=== PATIENT | male | born 1940 | race Caucasian/White ===

== ENCOUNTER → 2018-07-30 | Outpatient (REF) | payer MEDICARE ==
[~2018-07-30] MED LIST: ADLT ASA LOW81 MG PO; AGGRENOX 200/251 CAP PO; AMLODIPINE BESYL5 MG PO; ANTIVERT PO; APAP PO; APAP/TRAMADL1 TAB PO; ASPIRIN EC81 MG PO; CARISOPRODOL350 MG PO; CYANOCOBALAM1000 MC1 IM; CYANOCOBALAM1000 MCG IJ; CYANOCOBALAM1000 MCG IM; ENALAPRIL MALEA20 MG PO; ENALAPRIL10 MG PO; FLOMAX0.4 M1 PO; LANTUS SOLOSTAR; MEDDOSEPAK PO; METFORMIN1000 MG PO; METO50TA52 PO; METOPROLOL SUC200 MG PO; MIRAPEX1.5 MG OR; MULTIVITAMI1 PO; NITROGLYCER0.4 MG SL; NITROSTAT0.4 MG SL; NORVASC10 M1 PO; NOVOFINE32 GX6MM XX; OMEPRAZOLE20 MG PO; PLAVIX75 MG PO; PRAVASTATIN40 MG PO; PRILOSEC40 MG PO; REQUIP0.5 MG PO; TOPROL XL100 MG PO; TRAMADOL HCL50 MG PO; VICTOZA18 MG/3 ML SC; ZOFRAN ODT4 MG PO; [UNRECOGNIZED DRUG - OTHER] PO
== END | disposition home or self-care (01) ==
LOC: STRESS 08:12 → NUCMED 08:15
PROVIDERS: ATTEND Internal Medicine
DX: I20.9 Angina pectoris, unspecified (principal); Z98.61 Coronary angioplasty status
CPT/HCPCS: A9502; J2785

== ENCOUNTER → 2018-08-04 | Outpatient (REF) | payer MEDICARE ==
[2018-08-04 10:44] LABS: ALBUMIN 3.8 g/dL (3.2-5.0); ALKALINE PHOSPHATASE 85 u/l (38-126); ANION GAP 13 (6-22 (CALC)); BILIRUBIN, TOTAL 1.5 mg/dL (0.0-1.4); BUN 23 mg/dL (8-23); BUN/CREATININE RATIO 23 (12-20 (CALC)); CARBON DIOXIDE 26 mmol/l (22-30); CHLORIDE 99 mmol/l (95-108); GFR > 60 ML/MIN (>=60 (CALC)); GFR FOR AFR.AMER. > 60 ML/MIN (>=60 (CALC)); POTASSIUM 4.5 mmol/l (3.5-5.1); SGOT/AST 24 u/l (19-48); SODIUM 135 mmol/l (137-146)
[2018-08-04 10:58] LABS: ACT PARTIAL THROMBO TIME 28.7 SECONDS (20.0-32.5); INTERNATIONAL NORMALIZED RATIO 1.1 RATIO (0.7-1.3); PROTHROMBIN TIME 11.2 SECONDS (9.0-12.5)
[2018-08-04 11:04] LABS: HEMATOCRIT 38.4 % (39.0-50.0); HEMOGLOBIN 12.7 g/dl (14.0-18.0); MEAN CORPUSCULAR HGB 32.1 pG CALC (26.0-32.0); MEAN CORPUSCULAR HGB CONC 33.1 g/L CALC (32.0-36.0); NEUT# 2.17 thou/uL (1.82-7.42); RED BLOOD COUNT 3.96 mill/uL (4.70-6.10)
== END | disposition home or self-care (01) ==
LOC: LAB 09:48
PROVIDERS: ATTEND Internal Medicine
DX: I48.2 Chronic atrial fibrillation (principal); I20.8 Other forms of angina pectoris

== ENCOUNTER 2019-09-07 07:52 | Observation (INO) | payer MEDICARE ==
[~2019-09-07] VITALS: Ht 177.8 cm; Wt 103.6 kg
[~2019-09-07 07:52] MED LIST changes: +LANTUS SOL100 UNIT/M SC; -LANTUS SOLOSTAR
--- NOTE | 2019-09-07 07:55 | NUR ---
PT REFUSED WHEELCHAIR AND AMBUALTED TO ROOM WITH A STEADY GAIT.
[2019-09-07 08:31] LABS: HEMATOCRIT 36.9 % (39.0-50.0); HEMOGLOBIN 12.5 g/dl (14.0-18.0); IMMATURE GRANULOCYTES 0.2 % (0.0-5.0); MEAN CELL VOLUME 93.7 fL CALC (80.0-100.0); MEAN CORPUSCULAR HGB 31.7 pG CALC (26.0-32.0); MEAN CORPUSCULAR HGB CONC 33.9 g/dL CAL (32.0-36.0); NEUT# 3.25 thou/uL (1.82-7.42); RED BLOOD COUNT 3.94 mill/uL (4.70-6.10)
--- NOTE | 2019-09-07 08:55 | NUR ---
PT SKIN PWD, NO DISTRESS, RESP EVEN AND UNLABORED, PT DENIES FEELING OF FULLNESS IN THROAT AT THIS TIME. DENIES CP
[2019-09-07 08:58] LABS: ALBUMIN 4.1 g/dL (3.2-5.0); ALKALINE PHOSPHATASE 70 u/l (38-126); ANION GAP 12 (6-22 (CALC)); BILIRUBIN, TOTAL 1.8 mg/dL (0.0-1.4); BUN 20 mg/dL (8-23); BUN/CREATININE RATIO 25 (12-20 (CALC)); CARBON DIOXIDE 29 mmol/l (22-30); CHLORIDE 99 mmol/l (95-108); CREATININE 0.8 mg/dL (0.7-1.3); GFR > 60 ML/MIN (>=60 (CALC)); GFR FOR AFR.AMER. > 60 ML/MIN (>=60 (CALC)); LIPASE 81 u/l (23-300); MAGNESIUM 1.8 mg/dL (1.6-2.3); POTASSIUM 3.9 mmol/l (3.5-5.1); SGOT/AST 29 u/l (19-48); SODIUM 136 mmol/l (137-146); TOTAL PROTEIN 6.8 g/dL (6.3-8.2)
--- NOTE | 2019-09-07 09:30 | NUR ---
PT RESTING IN NO DISTRESS, STATES "THE FEELING IN MY THROAT IS GONE. PT GAVE QS LIGHT YELLOW URINE. TAKEN FOR UA. PT DENIES NEEDS AT THIS TIME. UPDATED ON WAIT TIME.
[2019-09-07 09:51] LABS: URINE BILIRUBIN - DIPSTICK NEGATIVE (NEGATIVE); URINE BLOOD DIPSTICK NEGATIVE (NEGATIVE); URINE COLOR YELLOW; URINE GLUCOSE - DIPSTICK NEGATIVE (NEGATIVE); URINE KETONE NEGATIVE (NEGATIVE); URINE LEUK ESTERASE NEGATIVE (NEGATIVE); URINE NITRITE - DIPSTICK NEGATIVE (Negative); URINE PH 6.5 (4.5-8.0); URINE PROTEIN - DIPSTICK NEGATIVE (NEG-TRACE); URINE UROBILINOGEN - DIPSTICK 0.2 E.U./dL (0.2)
[2019-09-07 09:54] LABS: TSH, 3RD GENERATION 2.07 uIU/mL (0.47 - 4.68)
--- NOTE | 2019-09-07 09:55 | NUR ---
EDP at bedside to discuss clinical findings with pt
--- NOTE | 2019-09-07 10:05 | NUR ---
Received call from DMITRI Madden re: Patient admission for chest pain - after review of criteria, writer editor advised MD via [place], observational status
[2019-09-07] MEDS ORDERED: HYDROCHLOROT25 MG PO (10:09)
[2019-09-07] MEDS ORDERED: REPAGLINIDE0.5 MG PO (10:09)
[2019-09-07] MEDS ORDERED: AMLODIPINE BES2.5 MG PO (10:10)
[2019-09-07] MEDS ORDERED: METOPROLOL SUCC50 MG PO (10:10)
[2019-09-07] MEDS ORDERED: ENALAPRIL20 MG PO (10:11)
[2019-09-07] MEDS ORDERED: CRESTOR40 MG PO (10:12)
[2019-09-07] MEDS ORDERED: ROPINIROLE HCL0.5 MG PO (10:13)
[2019-09-07] MEDS ORDERED: BAYER ASPIRIN E81 MG PO (10:14)
[2019-09-07] MEDS ORDERED: TRAMADOL HCL50 MG PO (10:15)
--- NOTE | 2019-09-07 10:34 | NUR ---
CALLED REPPORT TO KAPIL PEARSON
--- NOTE | 2019-09-07 10:40 | NUR ---
PT TRANSPORTED TO ME VIA ON TELEMETRY IN NO DISTRESS
--- NOTE | 2019-09-07 10:45 | NUR ---
PT TRANSPORTED TO THE UNIT VIA WC WITH STAFF AND TELE MONITOR IN PLACE. IV SITE IS FREE FROM REDNESS OR EDEMA
--- NOTE | 2019-09-07 10:50 | NUR ---
TELE STRIP WAS SENT DUE TO PT HAVING 8BEAT RN OF RENALDO. PT WAS COMING OFF THE ELEVATOR BEING BROUGHT UP STAIRS FROM ER. SHOWED ALEX MOSQUEDA WHILE IN THE ROOM WITH THE PT.
--- NOTE | 2019-09-07 11:10 | NUR ---
ASSESSMENT IS COMPLETED: IV SITE IS FREE FROM REDNESS OR EDEMA. HR IS RE,GPULSES ARE STRONG X4, ABD IS SOFT WITH ACTIVE BS. BREATH SOUNDS ARE CLEAR BILATERALLY, TELE MONITOR IN PLACE. CONTINUE TO OSBERVE AND MONITOR.
--- NOTE | 2019-09-07 11:15 | NUR ---
ALEX MOSQUEDA ALREADY SPOKE WITH DR KIRKLAND RE: PT.
[2019-09-07 11:48] VITALS: BP 164/73
--- NOTE | 2019-09-07 14:42 | NUR ---
DAUGHTER GABE. INFORMED OF FATHER IS DOING WELL.
--- NOTE | 2019-09-07 16:00 | NUR ---
PT IS RELAXING IN BED WITH NO DISTRESS NOTED. IV SITE IS FREE FROM REDNESS OR EDEMA. TELE MONITOR IN PLACE. DR KIRKLAND IN TO VISIT WITH PT.
[2019-09-07 16:01] VITALS: BP 136/80
--- NOTE | 2019-09-07 16:22 | NUR ---
RECIEVED REPORT FROM RAFFY DICK. INTRODUCED SELF TO PT. PT DENIES ANY PAIN OR DISCOMFORT AT THIS TIME. IV APPEARS TO BE HEALTHY. ENCOURAGED PT TO CALL IF NEEDING ANYTHING. ALL SAFTEY PERCAUTIONS IN PLACE. WILL CONTINUE TO MONITOR.
[2019-09-07 18:34] VITALS: BP 140/74
--- NOTE | 2019-09-07 19:30 | NUR ---
PATIENT AWAKE ALERT AND ORIENTEDX3. UP IN ROOM WITH STEADY GAIT. PATIENT DENIES ANY CHEST PAIN, SOB OR NAUSEA AT THIS TIME. PATIENT WITH TELE MONITOR IN PLACE. PATIENT STATES THAT HE HAD BM TODAY AND DENIES ANY DIFFICULTY WITH URINATION. LUNGS ARE DIMINISHED BUT CLEAR. SLIGHT BLE SWELLING-ENCOURAGED TO ELEVATE WHEN IN BED. SAFETY PRECAUTIONS REINFORCED. CALL LIGHT IN REACH. WILL CONT TO MONITOR.
--- NOTE | 2019-09-07 21:22 | NUR ---
SITTING UP WATCHING [id number] WAS 235-MEDICATED WITH LEVEMIR 20UNITS SCHEDULED AND WITH NOVALOG 2UNITS PER SS COVERAGE. PROVIDED WITH HS SNACK OF CEREAL BAR. HOME C-PAP AT BEDSIDE AND READY FOR USE WHEN READY FOR BED. CALL LIGHT IN REACH. WILL CONT TO MONITOR.
[2019-09-07 23:30] VITALS: BP 101/47
--- NOTE | 2019-09-08 00:08 | NUR ---
PATIENT RESTING ON LEFT SIDE WITH CPAP IN PLACE. APPEARS SLEEPING WITH EYES CLOSED. RESPS ARE EVEN AND UNLABORED. TELE MONITOR IN PLACE. CALL LIGHT IN REACH, WILL CONT TO MONITOR.
[2019-09-08 03:35] VITALS: BP 116/62
--- NOTE | 2019-09-08 04:20 | NUR ---
RESTING IN BED WITH C-PAP IN PLACE. RESPS ARE EVEN AND UNLABORED. TELE MONITOR IN PLACE. SAFETY PRECAUTIONS REINFORCED. CALL LIGHT IN REACH. WILL CONT TO MONITOR.
[2019-09-08 05:11] LABS: HEMATOCRIT 33.9 % (39.0-50.0); HEMOGLOBIN 11.6 g/dl (14.0-18.0); MEAN CELL VOLUME 93.6 fL CALC (80.0-100.0); MEAN CORPUSCULAR HGB CONC 34.2 g/dL CAL (32.0-36.0); NEUT# 2.18 thou/uL (1.82-7.42); RED BLOOD COUNT 3.62 mill/uL (4.70-6.10); RED CELL DISTRI WIDTH 12.9 % (11.5-15.5)
[2019-09-08 05:25] LABS: ANION GAP 7 (6-22 (CALC)); BUN 23 mg/dL (8-23); BUN/CREATININE RATIO 22 (12-20 (CALC)); CARBON DIOXIDE 30 mmol/l (22-30); CHLORIDE 101 mmol/l (95-108); GFR > 60 ML/MIN (>=60 (CALC)); GFR FOR AFR.AMER. > 60 ML/MIN (>=60 (CALC)); MAGNESIUM 1.9 mg/dL (1.6-2.3); POTASSIUM 3.9 mmol/l (3.5-5.1); SODIUM 134 mmol/l (137-146)
[2019-09-08 09:00] VITALS: BP 148/70
--- NOTE | 2019-09-08 09:00 | NUR ---
ASSESSMENT IS COMPLTED: IV SITE IS FREE FROM REDNESS OR EDEMA. HR IS REG, PULSES ARE STRONG X4, ABD IS SOFT WITH ACTIVE BS. BREATH SOUNDS ARE CLEAR,BILATERALLY. TELE MONITOR IN PLACE. CONTINEU TO OSBERVE AND MONITOR.
[2019-09-08] MEDS ORDERED: ISORDIL10 MG PO (09:27)
[2019-09-08] MEDS ORDERED: DIOVAN160 MG PO (09:32)
--- NOTE | 2019-09-08 11:00 | NUR ---
SPOKE WITH DR KIRKLAND STAFF AND OBTAINED AN APPOINTMENT FOR THE HOLTER MONITOR WILL BE PLACED TOMORROW IN THE OFFICE.
[2019-09-08 11:16] VITALS: BP 126/58
--- NOTE | 2019-09-08 12:24 | NUR ---
IV SITE DISCONTINUED CATHETER INTACT NO REDNESS OR EDEMA. DISCHARGE INSTRUCTIONS GIVEN AND VERBALIZED UNDERSTANDING. WILL BE HERE ABOUT 1 PM. CONTINEU TO OBSERVE AND MONITOR.
--- NOTE | 2019-09-08 13:00 | NUR ---
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 ALL BELONGINGS SENT /. WITH DISCHARGE PAPERS. Discharge instructions given. Patient verbalizes understanding of same. Discharged in stable condition via Wheelchair to Home with family. All belongings sent with pt.
== END 2019-09-08 12:44 | disposition home or self-care (01) ==
LOC: ED 07:52 → ED-I 09:51 → ED 10:16 → MS2 10:17 → ED-I 10:17 → MS2 10:28
PROVIDERS: Family Medicine; ADMIT Internal Medicine; ATTEND Internal Medicine
DX: I47.2 Ventricular tachycardia (principal); I49.3 Ventricular premature depolarization; E11.9 Type 2 diabetes mellitus without complications; I25.10 Atherosclerotic heart disease of native coronary artery without angina pectoris; I11.9 Hypertensive heart disease without heart failure; G47.33 Obstructive sleep apnea (adult) (pediatric); G89.4 Chronic pain syndrome; I25.2 Old myocardial infarction; Z95.1 Presence of aortocoronary bypass graft; Z95.5 Presence of coronary angioplasty implant and graft; Z79.4 Long term (current) use of insulin; Z86.73 Personal history of transient ischemic attack (TIA), and cerebral infarction without residual deficits; Z87.891 Personal history of nicotine dependence
CPT/HCPCS: G0378

== ENCOUNTER 2020-09-10 11:12 | Inpatient (IN) | payer MEDICARE ==
[~2020-09-10] VITALS: Ht 177.8 cm; Wt 97.0 kg
[~2020-09-10 11:12] MED LIST changes: +AMLODIPINE BES2.5 MG PO; +BAYER ASPIRIN E81 MG PO; +CRESTOR40 MG PO; +DIOVAN160 MG PO; +ENALAPRIL20 MG PO; +HYDROCHLOROT25 MG PO; +ISORDIL10 MG PO; +METOPROLOL SUCC50 MG PO; +REPAGLINIDE0.5 MG PO; +ROPINIROLE HCL0.5 MG PO
--- NOTE | 2020-09-10 11:16 | NUR ---
PT TO ROOM VIA W/C
[2020-09-10] MEDS ORDERED: LANTUS100 UNIT/M SC (11:31)
[2020-09-10] MEDS ORDERED: TRAMADOL HCL50 MG PO (11:33)
[2020-09-10] MEDS ORDERED: DIOVAN80 MG PO (11:34)
[2020-09-10] MEDS ORDERED: ISOSORB DIN10 MG PO (11:34)
[2020-09-10] MEDS ORDERED: XARELTO10 MG PO (11:35)
[2020-09-10] MEDS ORDERED: LASIX20 MG PO (11:35)
[2020-09-10] MEDS ORDERED: ALBUTEROL SUL0.083 % IN (11:37)
[2020-09-10 12:04] LABS: HEMATOCRIT 36.6 % (39.0-50.0); HEMOGLOBIN 11.7 g/dl (14.0-18.0); IMMATURE GRANULOCYTES 0.2 % (0.0-5.0); MEAN CELL VOLUME 94.8 fL CALC (80.0-100.0); MEAN CORPUSCULAR HGB 30.3 pG CALC (26.0-32.0); NEUT# 2.54 thou/uL (1.82-7.42); RED BLOOD COUNT 3.86 mill/uL (4.70-6.10); RED CELL DISTRI WIDTH 14.8 % (11.5-15.5)
[2020-09-10 12:14] LABS: ALBUMIN 4.1 g/dL (3.2-5.0); ALKALINE PHOSPHATASE 92 u/l (38-126); ANION GAP 8 (6-22 (CALC)); BILIRUBIN, TOTAL 1.5 mg/dL (0.0-1.4); BUN 19 mg/dL (8-23); BUN/CREATININE RATIO 22 (12-20 (CALC)); CARBON DIOXIDE 31 mmol/l (22-30); CHLORIDE 100 mmol/l (95-108); CREATININE 0.9 mg/dL (0.7-1.3); GFR > 60 ML/MIN (>=60 (CALC)); GFR FOR AFR.AMER. > 60 ML/MIN (>=60 (CALC)); POTASSIUM 3.9 mmol/l (3.5-5.1); SGOT/AST 33 u/l (19-48); SODIUM 135 mmol/l (137-146)
[2020-09-10 12:17] LABS: INTERNATIONAL NORMALIZED RATIO 1.5 RATIO (0.7-1.3); PROTHROMBIN TIME 15.3 SECONDS (9.0-12.5)
[2020-09-10 12:21] LABS: URINE BILIRUBIN - DIPSTICK NEGATIVE (NEGATIVE); URINE BLOOD DIPSTICK NEGATIVE (NEGATIVE); URINE COLOR YELLOW; URINE GLUCOSE - DIPSTICK NEGATIVE (NEGATIVE); URINE KETONE NEGATIVE (NEGATIVE); URINE LEUK ESTERASE NEGATIVE (NEGATIVE); URINE PROTEIN - DIPSTICK NEGATIVE (NEG-TRACE)
[2020-09-10 12:22] LABS: URINE NITRITE - DIPSTICK NEGATIVE (Negative)
--- NOTE | 2020-09-10 12:30 | NUR ---
PT RESTING ON STRETCHER, ASKED ABOUT PLAN OF CARE. CALL LIGHT WITHIN REACH
--- NOTE | 2020-09-10 13:30 | NUR ---
PT DISCONNECTED FOR A TRIP TO BR. LASIX GIVEN AND URINAL PLACED AT BEDSIDE. PT REFUSED TO USE URINAL, HE STATES THAT HE WILL WALK TO BR. HE IS EDU ON DIZZINESS AND SIDE EFFECTS OF LASIX AND HE VERBALIZED UNDERSTANDING STATING THAT HE WILL CONTINUE TO GET UP TO RESTROOM
--- NOTE | 2020-09-10 14:32 | NUR ---
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 WAIT TIME DISCUSSED.
--- NOTE | 2020-09-10 15:30 | NUR ---
PORT TELE PLACED ON PT AND HE ASKED ABOUT PLAN OF CARE AND WAIT TIME. ALL SUBJECTS DISCUSSED
--- NOTE | 2020-09-10 16:18 | NUR ---
PT TRANPORTED TO [facility] SURG STABLE AND IN NO DISTRESS VIA W/C CARE ASSUMED TO [place] Admission Note Report Given to: [place] Transported by: X Wheelchair Stretcher Transported with: X Nurse Transporter X Patent IV O2 X Mechanical Shop Laborer Location: ICU X MS2
--- NOTE | 2020-09-10 16:18 | NUR ---
GAVE REPORT TO SARAH
[2020-09-10 16:27] VITALS: BP 150/72
--- NOTE | 2020-09-10 17:28 | NUR ---
PT ARRIVED ON FLOOR @ 1620. AXOX3, DENIES PAIN. NOTED NO SOB NO 02. INTO BED WITH ASST. ORIENTED ON THE USE OF THE TELEPHONE THE CALL SYSTEM, BED AND THE TV. REPOSITIOEND FOR COMFORT, SIDE RAILS UP CALL LIGHT IN REACH, BED LOCKED IN LOW POSITION, ALL SAFTY MEASURES IN PLACE. PT CALLED HOME FOR A FAMILY MEMBER TO BRING HIS C-PAP TO THE HOSPITAL FOR USE FOR TONIGHT.
--- NOTE | 2020-09-10 17:32 | NUR ---
OUT OF THE BED TO THE BATHROOM GAIT STEADY NO RESP ISSUES NOTED AT THIS TIME.
--- NOTE | 2020-09-10 18:02 | NUR ---
PT,S BROUGHT C-PAP AT THE BEDSIDE.
[2020-09-10 19:11] VITALS: BP 150/67
--- NOTE | 2020-09-10 19:52 | NUR ---
PATIENT RESTING IN BED AT THIS TIME-AWAKE ALERT AND ORIENTEDX3. PATIENT STATES THAT HE IS FEELING TIRED BUT OTHERWISE OK. O2 SAT IS 96 ON ROOM AIR. C-PAP AT BEDSIDE FOR USE TONIGHT. SALINE LOCK TO LAC INTACT AND HEALTHY AT THIS TIME. TELE MONITOR IN PLACE. SAFETY PRECAUTIONS REINFORCED. CALL LIGHT IN REACH. WILL CONT TO MONITOR.
--- NOTE | 2020-09-10 21:46 | NUR ---
PATIENT RESTING IN BED AT THIS TIME POSITONED ON RIGHT SIDE WITH C-PAP IN PLACE. EYES ARE CLOSED. RESPS ARE EVEN AND UNLABORED AT THIS TIME. TELE MONITOR IN PLACE. CALL LIGHT IN REACH. WILL CONT TO MONITOR.
--- NOTE | 2020-09-10 23:35 | NUR ---
PATIENT RESTING IN BED AT THIS TIME WITH C-PAP IN PLACE. PATIENT REFUSED ULTRAM AT THIS TIME. TELE MONITOR IN PLACE. SALINE LOCK TO LAC INTACT. VS TAKEN AND RECORDED. CALL LIGHT IN REACH. WILL CONT TO MONITOR.
[2020-09-11 00:03] VITALS: BP 158/75
[2020-09-11 04:00] VITALS: BP 142/86
--- NOTE | 2020-09-11 04:13 | NUR ---
PATIENT POSITIONED ON HIS RIGHT6 SIDE WITH C-PAP IN PLACE AND EYES CLOSED. RESPS ARE EVEN AND UNLABORED. TELE MONITOR IN PLACE. SALINE LOCK TO0 LAC INTACT. CALL LIGHT IN REACH. WILL CONT TO MONITOR.
[2020-09-11 04:44] LABS: HEMOGLOBIN 11.1 g/dl (14.0-18.0); IMMATURE GRANULOCYTES 0.3 % (0.0-5.0); MEAN CELL VOLUME 95.2 fL CALC (80.0-100.0); MEAN CORPUSCULAR HGB 29.4 pG CALC (26.0-32.0); MEAN CORPUSCULAR HGB CONC 30.8 g/dL CAL (32.0-36.0); NEUT# 1.63 thou/uL (1.82-7.42); RED BLOOD COUNT 3.78 mill/uL (4.70-6.10); RED CELL DISTRI WIDTH 14.8 % (11.5-15.5)
[2020-09-11 05:03] LABS: ALBUMIN 3.4 g/dL (3.2-5.0); ALKALINE PHOSPHATASE 91 u/l (38-126); ANION GAP 10 (6-22 (CALC)); BILIRUBIN, TOTAL 1.4 mg/dL (0.0-1.4); BUN 20 mg/dL (8-23); BUN/CREATININE RATIO 24 (12-20 (CALC)); CARBON DIOXIDE 31 mmol/l (22-30); CHLORIDE 98 mmol/l (95-108); CREATININE 0.8 mg/dL (0.7-1.3); GFR > 60 ML/MIN (>=60 (CALC)); GFR FOR AFR.AMER. > 60 ML/MIN (>=60 (CALC)); SGOT/AST 33 u/l (19-48); SODIUM 135 mmol/l (137-146)
--- NOTE | 2020-09-11 08:00 | NUR ---
PT RESTING IN THE BED AXOX3, ON RA AT THIS TIME. NO RESP DISTRESS NOTED. PT VOIDING CLEAR YELLOW URINE, C/O PAIN IN THE LOWER BACK, MED PER ORDER. REPOSITIONED FOR COMOFRT, SIDE RAILS UP CALL LIGHT IN REACH BED LOCKED IN LOW POSITION, WILL CONTINUE TO MONIOTR THE PATIENT. ALL SAFTY MEASURES IN PLACE.
--- NOTE | 2020-09-11 10:00 | NUR ---
PT RESTING COMFORTABLE NO DISTRESS NOTED AT THIS TIME. WILL CONTINUE TO MONIOTR THE PATIENT.
--- NOTE | 2020-09-11 11:07 | NUR ---
REQUEST MADE TO PT FOR HOME MED VICTOZA.
[2020-09-11 11:27] VITALS: BP 156/79
--- NOTE | 2020-09-11 12:17 | NUR ---
TELE STRIP GIVEN TO PROVIDER TO EVALUATE.
--- NOTE | 2020-09-11 13:24 | NUR ---
AT THE BEDSIDE. HOME MED SENT TO PHARMACY WITH DOSE AND INSTRUCTIONS.
[2020-09-11 14:58] VITALS: BP 145/78
--- NOTE | 2020-09-11 16:31 | NUR ---
PT RESTING COMFORTABLE IN THE BED, NO DISTRESS NOTED AT THIS TIME. WILL CONTINUE TO MONITOR THE PATIENT.
[2020-09-11 19:30] VITALS: BP 105/60
[2020-09-11 23:50] VITALS: BP 128/74
--- NOTE | 2020-09-12 02:10 | NUR ---
PATIENT CURRENTLY RESTING WITH EYES CLOSED. RESPIRATINS EASY. ON TELEMETRY, PACED AT 70. SCHEDULED ULTRAM GIVEN FOR PAIN WITH POSITIVE EFFECT. BED IN LOW POSITION. CALL LIGHT WITHIN REACH.
[2020-09-12 04:05] VITALS: BP 139/77
[2020-09-12 05:23] LABS: HEMATOCRIT 35.6 % (39.0-50.0); HEMOGLOBIN 11.3 g/dl (14.0-18.0); IMMATURE GRANULOCYTES 0.3 % (0.0-5.0); MEAN CELL VOLUME 93.9 fL CALC (80.0-100.0); MEAN CORPUSCULAR HGB 29.8 pG CALC (26.0-32.0); MEAN CORPUSCULAR HGB CONC 31.7 g/dL CAL (32.0-36.0); NEUT# 1.89 thou/uL (1.82-7.42); RED BLOOD COUNT 3.79 mill/uL (4.70-6.10); RED CELL DISTRI WIDTH 14.5 % (11.5-15.5)
[2020-09-12 05:35] LABS: ANION GAP 7 (6-22 (CALC)); BUN 21 mg/dL (8-23); BUN/CREATININE RATIO 24 (12-20 (CALC)); CARBON DIOXIDE 35 mmol/l (22-30); CHLORIDE 96 mmol/l (95-108); CREATININE 0.8 mg/dL (0.7-1.3); GFR > 60 ML/MIN (>=60 (CALC)); GFR FOR AFR.AMER. > 60 ML/MIN (>=60 (CALC)); POTASSIUM 3.8 mmol/l (3.5-5.1); SODIUM 134 mmol/l (137-146)
--- NOTE | 2020-09-12 06:52 | NUR ---
PATIENT ACCUCHECK IS 75, NURSE NOTIFIED.
[2020-09-12 07:40] VITALS: BP 138/80
--- NOTE | 2020-09-12 07:40 | NUR ---
REPORT RECEIVED; PT SITTING UP ON EDGE OF BED EATING BREAKFAST; ALERT AND OREINTED X 3. CURRENTLY DENIES ANY PAIN; REPORTS THAT PAIN MEDICATION HAS BEEN EFFECTIVE. RESPIRATIONS EVEN AND UNLABORED ON ROOM AIR; REPORTS EXERTIONAL SOB; LUNGS ARE CLEAR. BOUNDING RADIAL PULSES; PITTING EDEMA TO BLE; 3+ TO LLE AND 4+ TO RLE WHEN DEPENDENT. PACED ON TELEMETRY. 20G IV TO LAC APPEARS HEATLHY AND FLUSHES. POC REVIEWED; PT ENCOURAGED TO VERBALIZE CONCERNS; STATES UNDERSTANDING. SAFETY MEASURES IN PLACE. CALL LIGHT WITHIN REACH.
--- NOTE | 2020-09-12 09:13 | NUR ---
DR. ZHANG AND RYLIE GONZALEZ AT BEDSIDE.
--- NOTE | 2020-09-12 09:37 | NUR ---
MIRALAX AND MILK OF MAGNESIA GIVEN WITH AM MEDS.
--- NOTE | 2020-09-12 10:00 | NUR ---
OFF UNIT VIA WHEELCHAIR FOR CHEST XRAY.
--- NOTE | 2020-09-12 10:15 | NUR ---
RETURNED TO ROOM IN STABLE CONDITION.
[2020-09-12 10:30] VITALS: BP 110/53
--- NOTE | 2020-09-12 12:48 | NUR ---
PT EXPERIENCING NAUSEA WITH SMALL EMESIS PRIOR TO EATING LUNCH; NAUSEA IS RESOVED AFTER EMESIS; GABRIELLE OFFERED AND RECOMMENDED THAT PT HAVE CLEAR LIQUID LUNCH FOR NOW. WILL CONTINUE TO MONITOR.
--- NOTE | 2020-09-12 13:24 | NUR ---
EDUCATED ON NEW MEDICATIONS ROCEPHIN AND ZITHROMAX; INFUSING AT THIS TIME; IV SITE APPEARS HEALTHY. PT RESTING ON RIGHT SIDE IN BED; CONTINUES TO DENY PAIN.
[2020-09-12 15:52] VITALS: BP 169/84
--- NOTE | 2020-09-12 16:41 | NUR ---
PATIENT ACCUCHECK WAS 59, NURSE NOTIFIED.
--- NOTE | 2020-09-12 17:00 | NUR ---
FOLLOW UP ACCU CHECK 85; DINNER PROVIDED. PT ASYMPTOMATIC.
[2020-09-12 19:00] VITALS: BP 127/68
--- NOTE | 2020-09-12 19:38 | NUR ---
PATIENT RESTING ON HIS RIGHT SIDE WITH EYES CLOSED.RESPS ARE EVEN AND UNLABORED. TELE MONITOR IN PLACE. SALINE LOCK TO LAC INTACT. CALL LIGHT IN REACH. WILL CONT TO MONITOR.
--- NOTE | 2020-09-12 21:21 | NUR ---
PATIENT AWAKE ALERT AND ORIENTEDX3 WATCHING TV. ACCU-CHECK WAS D217 TONIGHT-MEDICATED WITH HUMALOG 4UNITS SQ PER SLIDING SCALE COVERAGE PROTOCOL. HS SNACK PROVIDED. TELE MONITOR IN PLACE. SALINE LOCK TO LAC INTACT AND FLUSHES WELL. PATIENT VOIDING CLEAR YELLOW URINE IN URINAL FOR STRICT I&O-VOIDED 1000CC. STATES THAT HE DID HAVE BM TODAY. LUNGS WITH FINE CRACKLES IN FERCHO BASES. INSTRUCTED PATIENT ON USE OF IS-Q1H WHILE AWAKE IN REPS OF 10. PATIENT IS ABLE TO DEMONSTRATE PROPER USE OF THE DEVICE. SAFETY PRECAUTIONS REINFORCED. CALL LIGHT IN REACH. WILL CONT TO MONITOR.
--- NOTE | 2020-09-12 23:35 | NUR ---
PATIENT RESTING IN BED POSITIONED ON HIS RIGHT SIDE WITH C-PAP IN PLACE. EYES ARE CLOSED. RESPS ARE EVEN AND UNLABORED. TELE MONITOR IN PLACE. SALINE LOCK TO LAC INTACT. CALL LIGHT IN REACH. WILL CONT TO MONITOR.
[2020-09-13] VITALS: BP 129/68
[2020-09-13 04:00] VITALS: BP 121/68
--- NOTE | 2020-09-13 04:28 | NUR ---
PATIENT RESTING IN BED AT THIS TIME-POSITIONED ON LEDT SIDE WITH C-PAP IN PLACE. EYES ARE CLOSED. RESPS ARE EVEN AND UNLABORED. TELE MONITOR IN PLACE. CONT TO VOID YELLOW URINE IN URINAL. WEIGHT WAS 99 KG THIS MORNING. SALINE LOCK TO LAC INTACT. CALL LIGHT IN REACH. WILL CONT TO MONITOR.
[2020-09-13 05:04] LABS: HEMATOCRIT 36.7 % (39.0-50.0); HEMOGLOBIN 11.4 g/dl (14.0-18.0); MEAN CELL VOLUME 94.8 fL CALC (80.0-100.0); MEAN CORPUSCULAR HGB 29.5 pG CALC (26.0-32.0); MEAN CORPUSCULAR HGB CONC 31.1 g/dL CAL (32.0-36.0); RED BLOOD COUNT 3.87 mill/uL (4.70-6.10); RED CELL DISTRI WIDTH 14.6 % (11.5-15.5)
[2020-09-13 05:25] LABS: BUN 20 mg/dL (8-23); BUN/CREATININE RATIO 19 (12-20 (CALC)); CARBON DIOXIDE 34 mmol/l (22-30); CHLORIDE 94 mmol/l (95-108); GFR > 60 ML/MIN (>=60 (CALC)); GFR FOR AFR.AMER. > 60 ML/MIN (>=60 (CALC)); MAGNESIUM 2.2 mg/dL (1.6-2.3); SODIUM 135 mmol/l (137-146)
[2020-09-13 05:26] LABS: ANION GAP 12 (6-22 (CALC)); POTASSIUM 4.7 mmol/l (3.5-5.1)
[2020-09-13 07:25] VITALS: BP 142/70
--- NOTE | 2020-09-13 08:00 | NUR ---
PT SITTING ON THE SIDE OF THE BED. A&O X4. NO DISTRESS NOTED. CLEAR DIMINISHED BREATH SOUNDS HEARD UPON AUSCULTATION. PT DENIES ANY CURRENT SOB BUT DOES REPORT EXERTIONAL SOB. CURRENTLY 94-95% VIA ROOM AIR. TRACE EDEMA NOTED TO BLE. SOLE LEVELER MACHINE IN PLACE CURRENTLY PACED WITH THE RATE OF 72, PER ED MONITORING. #[address], HEALTHY AND PATENT. NO NEEDS AT THIS TIME. DISCUSSED POC. CALL LIGHT PLACED WITHIN REACH.
--- NOTE | 2020-09-13 09:41 | NUR ---
PT LAYING IN BED. C/O OF 5/10 PAIN DESCRIBED "BURNING/THROBBING PAIN" LOCATED IN LOWER BACK. PAIN MEDICATION GIVEN. WILL REASSESS. CALL LIGHT WITHIN REACH.
--- NOTE | 2020-09-13 10:16 | NUR ---
DR DELA CRUZ AND Crow YOUNGER APRN AT BEDSIDE DISCUSSING POC/POSS D/C. CONSULT ORDERED AND PLACED FOR DR KIRKLAND FOR CHF/PNA
[2020-09-13 10:45] VITALS: BP 106/50
--- NOTE | 2020-09-13 11:11 | NUR ---
PT SITTING ON THE SIDE OF THE BED. C/O NAUSEA, DENIES ANY VOMITING EPISODES. UPDATED PT ON DR KIRKLAND CONSULT PER MY CONVERSTION WITH Crow YOUNGER APRN. PT TO GET A CT SCAN, PT UPDATED AND AGREEABLE ON PLAN. Crow YOUNGER APRN NOTIFIED OF NAUSEA, ORDER OBTAINED FOR 4 MG ZOFRAN IV. ORDER FAXED TO PHARMACY.
--- NOTE | 2020-09-13 11:43 | NUR ---
Crow YOUNGER APRN AT BEDSIDE DISCUSSING UPDATED POC WITH POSS D/C PLANNING. PT AGREEABLE. CALL LIGHT WITHIN REACH.
[2020-09-13 14:43] VITALS: BP 112/66
--- NOTE | 2020-09-13 15:39 | NUR ---
RT RAMIREZ AT BEDSIDE COMPLETING 6 MIN WALK TEST. Crow YOUNGER APRN AT BEDSIDE DISCUSSING POC
--- NOTE | 2020-09-13 16:18 | NUR ---
PT UPDATED ON CURRENT POC AND POSSIBLE D/C TOMORROW. XARELTO AND ASPIRIN TO BE HELD IN THE AM TO HAVE THORACENTESIS. PT AGREEABLE TO PLAN. NO NEEDS AT THIS TIME. CALL LIGHT WITHIN REACH.
[2020-09-13 19:00] VITALS: BP 148/71
--- NOTE | 2020-09-13 20:30 | NUR ---
PATIENT RESTING IN BED AT THIS TIME-AWAKE ALERT AND ORIENTEDX3. PATIENT STILL SOB WITH EXHERSION. FOR THORACENTESIS TOMORROW. TELE MONITOR IN PLACE-PACED AT 70. SALINE LOCK TO LAC INTACT AND IS HEALTHY AT THIS TIME. VOIDING YELLOW URINE IN URINAL FOR STRICT I&O, ACCU-CHECK IS 246-COVERED WITH 4UINTS OF HUMALOG PER SLIDING SCALE COVERAGE SCALE. HS SNACK PROVIDED. SLIGHT BLE SWELLING. LUNGS ARE DIMINISHED IN THE BASES. SAFETY PRECAUTIONS REINFORCED. CALL LIGHT IN REACH. WILL CONT TO MONITOR.
--- NOTE | 2020-09-13 23:23 | NUR ---
PATIENT POSITIONED ON LEFT SIDE AT THIS TIME WITH C-PAP IN PLACE. RESPS ARE EVEN AND UNLABORED. TELE MONITOR IN PLACE. CALL LIGHT IN REACH. WILL CONT TO MONITOR.
[2020-09-14] VITALS: BP 123/65
[2020-09-14 04:00] VITALS: BP 126/65
--- NOTE | 2020-09-14 04:19 | NUR ---
PATIENT RESTING IN BED AT THIS TIME POSITONED ON LEFT SIDE WITH EYES CLOSED. RESPS ARE EVEN AND UNLABORED. C-PAP IN PLACE. TELE MONITOR IN PLACE. SALINE LOCK TO LAC INTACT. CALL LIGHT IN REACH. WILL CONT. TO MONITOR.
[2020-09-14 05:42] LABS: HEMATOCRIT 36.9 % (39.0-50.0); HEMOGLOBIN 11.4 g/dl (14.0-18.0); MEAN CELL VOLUME 95.3 fL CALC (80.0-100.0); MEAN CORPUSCULAR HGB 29.5 pG CALC (26.0-32.0); MEAN CORPUSCULAR HGB CONC 30.9 g/dL CAL (32.0-36.0); RED BLOOD COUNT 3.87 mill/uL (4.70-6.10); RED CELL DISTRI WIDTH 14.5 % (11.5-15.5)
--- NOTE | 2020-09-14 05:43 | NUR ---
PATIENT RESTING IN BED AT THIS TIME-AWAKE ALERT AND ORIENTEDX3 C/O SOME NAUSEA THIS MORNING. STATES THAT HE THINKS THAT HIS SUGER MAY BE LOW-SKIN ISWARM AND DRY DENIES FEELING SHAKEY. ACCU-CHECK DONE AND WAS 185. CALL LIGHT IN REACH. WILL CONT TO MONITOR.
[2020-09-14 05:59] LABS: ANION GAP 9 (6-22 (CALC)); BUN 21 mg/dL (8-23); BUN/CREATININE RATIO 22 (12-20 (CALC)); CARBON DIOXIDE 32 mmol/l (22-30); CHLORIDE 95 mmol/l (95-108); GFR > 60 ML/MIN (>=60 (CALC)); GFR FOR AFR.AMER. > 60 ML/MIN (>=60 (CALC)); POTASSIUM 4.1 mmol/l (3.5-5.1); SODIUM 132 mmol/l (137-146)
--- NOTE | 2020-09-14 07:25 | NUR ---
PT LAYING IN BED. A&O X4. NO DISTRESS NOTED. NO CURRENT NEED FOR OXYGEN SUPPLEMENTATION. PT REPORTS TO BE FEELING WELL THIS MORNING. C/O ACHING THROBING LOWER BACK PAIN; CURRENTLY 5/10. PAIN MEDICATION TO BE GIVEN. CLEAR/DIMINISHED BREATH SOUNDS HEARD UPON AUSCULTATION. VEGETABLE INSPECTOR IN PLACE, CURRENTLY PACED PER AMANDEEP ED UC. ACTIVE BOWEL SOUNDS X4 QUADS. 900 CC OF CLEAR YELLOW URINE EMPTIED FROM URINAL. PT REQUESTING TO HAVE STOOL SOFTENER TO ASSIT WITH BOWELS, MOM TO BE GIVEN WITH AM MEDS. TRACE EDEMA NOTED TO BLE. ASSESSMENT COMPLETED. DISCUSSED POC. CALL LIGHT WITHIN REACH.
[2020-09-14 07:35] VITALS: BP 146/67
--- NOTE | 2020-09-14 08:40 | NUR ---
DR DELA CRUZ AND Crow YOUNGER VENETIAN BLIND CLEANER AT BEDSIDE DISCUSSING POC
[2020-09-14 10:58] VITALS: BP 104/51
--- NOTE | 2020-09-14 11:40 | NUR ---
PT SITTING ON THE SIDE OF THE BED READING A BOOK. NO NEEDS AT THIS TIME. 800 ML OF CLEAR YELLOW URINE EMPTIED OUT OF URINAL. CALL LIGHT WITHIN REACH.
[2020-09-14] MEDS ORDERED: LASIX40 MG PO (12:11)
[2020-09-14] MEDS ORDERED: Levaquin PO (12:12)
--- NOTE | 2020-09-14 12:13 | NUR ---
PT UPDATED ON POC AND D/C PLANNING. PT AGREEABLE.
--- NOTE | 2020-09-14 13:49 | NUR ---
PT LAYING IN BED. C/O OF BACK PAIN AND NAUSEA. ZOFRAN GIVEN. NO OTHER NEEDS AT THIS TIME. CALL LIGHT WITHIN REACH.
--- NOTE | 2020-09-14 15:28 | NUR ---
PT REPORTS TO BE FEELING BETTER. NO OTHER NEEDS AT THIS TIME. CALL LIGHT WITHIN REACH.
--- NOTE | 2020-09-14 16:20 | NUR ---
D/C INSTRUCTIONS GIVEN AND REVIEWED WITH PT AND . BOTH VERBALIZED UNDERSTANDING. IV INTACT UPON REMOVAL.
--- NOTE | 2020-09-14 16:50 | NUR ---
Discharge instructions given. Patient verbalizes understanding of same. Discharged in stable condition via wheelchair to home accompanied by this data analyst report writer and . Pt given outpt order for thoracentesis, schedueling notified, order sent along with required paperwork. All belongings sent with pt.
== END 2020-09-14 16:50 | disposition home or self-care (01) | DRG 291 ==
LOC: ED 11:12 → ED-I 14:35 → ED 14:47 → MS2 14:48
PROVIDERS: Emergency Medicine; Nurse Practitioner; Physician Assistant; ADMIT Internal Medicine; ATTEND Internal Medicine
DX: I11.0 Hypertensive heart disease with heart failure (principal); J18.9 Pneumonia, unspecified organism; J91.8 Pleural effusion in other conditions classified elsewhere; I50.9 Heart failure, unspecified; I25.10 Atherosclerotic heart disease of native coronary artery without angina pectoris; E11.9 Type 2 diabetes mellitus without complications; E78.5 Hyperlipidemia, unspecified; G47.33 Obstructive sleep apnea (adult) (pediatric); I25.2 Old myocardial infarction; K59.00 Constipation, unspecified; Z95.1 Presence of aortocoronary bypass graft; Z79.4 Long term (current) use of insulin; Z95.5 Presence of coronary angioplasty implant and graft; Z87.891 Personal history of nicotine dependence; Z79.01 Long term (current) use of anticoagulants; Z20.822 Contact with and (suspected) exposure to COVID-19
CPT/HCPCS: G0378

== ENCOUNTER 2021-05-17 06:02 | Emergency (ER) | payer MEDICARE ==
[~2021-05-17] VITALS: Ht 177.8 cm; Wt 90.0 kg
[~2021-05-17 06:02] MED LIST changes: +ALBUTEROL SUL0.083 % IN; +DIOVAN80 MG PO; +ELIQUIS2.5 MG PO; +ESCITALOPRAM OX10 MG PO; +FUROSEMIDE20 MG PO; +ISOSORB DIN10 MG PO; +LANTUS100 UNIT SC; +LASIX20 MG PO; +LASIX40 MG PO; +Levaquin PO; +METOLAZONE2.5 MG PO; +PROTONIX40 M2 PO; +ROPINIROLE0.5 MG PO; +TRELEGY ELLIPTA1 AER; +XARELTO10 MG PO
[2021-05-17] MEDS ORDERED: POTASSI24 PO (06:44)
[2021-05-17] MEDS ORDERED: METOLAZONE2.5 MG PO (07:01)
[2021-05-17] MEDS ORDERED: EZALLOR SPRINKL40 MG PO (07:03)
[2021-05-17] MEDS ORDERED: AMOXICILLIN875 MG PO (08:15)
[2021-05-17] MEDS ORDERED: ZOFRAN4 MG/TAB PO (08:15)
[2021-05-17] MEDS ORDERED: TAM75CAP PO (08:15)
[2021-05-17 08:37] VITALS: BP 123/72
== END 2021-05-17 08:45 | disposition home or self-care (01) ==
LOC: ED 06:02
DX: J10.00 Influenza due to other identified influenza virus with unspecified type of pneumonia (principal); E11.9 Type 2 diabetes mellitus without complications; I10 Essential (primary) hypertension; Z95.5 Presence of coronary angioplasty implant and graft; Z95.0 Presence of cardiac pacemaker; Z79.4 Long term (current) use of insulin; Z20.822 Contact with and (suspected) exposure to COVID-19